=== PATIENT | female | born 1975 | race American Indian/Alaskan Native ===

== ENCOUNTER 2016-10-23 18:01 | Emergency (ER) | payer MEDICARE ==
[2016-10-23] MEDS ORDERED: FUL-GLO OP ONE (21:20)
[2016-10-23] MEDS ORDERED: TETRACAINE 0.5% OU ONE (21:21)
[2016-10-23] MEDS ORDERED: MOTRIN PO ONE (21:22)
--- NOTE | 2016-10-23 21:22 | Emergency Department Report ---
Eye Injury/Foreign Body - HPI Duration: Today Eye Location: Left Eye Symptoms: Eye Pain: Yes, Blurred Vision: Yes, Eye Redness: Yes, Grinding/ Hammering Metal: No, Used Eye Protection: No, Contact Lens Use: No, Recalls Injury: No, Photophobia: No Other History: 41-year-old female past medical history obesity, depression presents with complaint of left eye irritation and redness since this afternoon. Patient denies any direct trauma denies any substances splashing in her eye. States that she has had intermittent blurry vision since this afternoon. Overall vision is intact. Denies headache nausea but does state she has slight photophobia. Has had watery tears from left eye. ED Review of Systems ROS: Stated complaint: LEFT EYE IS RED, LEFT SIDE PAIN Other details as noted in HPI Constitutional: denies: chills, fever Eyes: eye pain, eye discharge, vision change (blurry vision left eye) ENT: denies: ear pain, throat pain Respiratory: denies: cough, shortness of breath, wheezing Cardiovascular: denies: chest pain, palpitations Endocrine: no symptoms reported Gastrointestinal: denies: abdominal pain, nausea, diarrhea Genitourinary: denies: urgency, dysuria, discharge Musculoskeletal: denies: back pain, joint swelling, arthralgia Skin: denies: rash, lesions Neurological: denies: headache, weakness, paresthesias Psychiatric: denies: anxiety, depression Hematological/Lymphatic: denies: easy bleeding, easy bruising ED Past Medical Hx - Past Medical History Hx Hypertension: Yes Hx Psychiatric Treatment: Yes (manic depression) - Surgical History Past Surgical History?: No - Social History Smoking Status: Never Smoker Substance Use Type: Alcohol - Medications Home Medications: Home Medications Medication Instructions Recorded Confirmed Last Taken Type Glycerin/Propylene Glycol 1 drop OP Q4H PRN #1 bottle 10/23/16 Unknown Rx [Artificial Tears Drops] Naproxen [Naprosyn TAB] 500 mg PO BID PRN #20 tablet 10/23/16 Unknown Rx Tobramycin 0.3% [Tobrex] 1 drop OS Q4H #1 bottle 10/23/16 Unknown Rx Eye Injury Exam - Exam General: Vital signs noted. No distress. Alert and acting appropriately. - Visual Acuity Left Vision Acuity Degree: 20/40 Eye Exam: Left Injection, Left EOMI, Left Fluorescein Uptake (small visible abrasion near pupil but normal overlyign it, vertical), Left Photophobia Exam: I performed IOP with tonopen, reading ,10, 11 left eye ED Course Vital Signs 10/23/16 18:22 Temperature 98.6 F Pulse Rate 106 H Respiratory 18 Rate Blood Pressure 149/97 O2 Sat by Pulse 99 Oximetry ED Medical Decision Making - Medical Decision Making A/P: Left eye corneal abrasion 1-tobramycin drops to left eye, naproxen when necessary 2-artificial tears 3-follow up with ophthalmology, I gave patient referral information and advised her to follow-up to mitigate any long-term issues with her vision 4- tdap updated today 5- IOP ,,11 left eye, visual acuity 20/30 right eye, 20/70 left eye, 20/50 BL. Critical care attestation.: If time is entered above; I have spent that time in minutes in the direct care of this critically ill patient, excluding procedure time. ED Disposition Clinical Impression: Corneal abrasion, left Qualifiers: Encounter type: initial encounter Qualified Code(s): S05.02XA - Injury of conjunctiva and corneal abrasion without foreign body, left eye, initial encounter Disposition: - TO HOME OR SELFCARE Is pt being admited?: No Does the pt Need Aspirin: No Condition: Stable Instructions: Corneal Abrasion (ED) Prescriptions: Glycerin/Propylene Glycol [Artificial Tears Drops] 1 drop OP Q4H PRN #1 bottle PRN Reason: Itching Naproxen [Naprosyn TAB] 500 mg PO BID PRN #20 tablet PRN Reason: Pain Tobramycin 0.3% [Tobrex] 1 drop OS Q4H #1 bottle Referrals: ELIDA ZAMORA MD [Staff Physician] - 3-5 Days RAS BENNETT MD [Staff Physician] - 3-5 Days Forms: Work/School Release Form(ED) Time of Disposition: 22:30
[2016-10-23] MEDS ORDERED: BOOSTRIX IM ONE (22:29)
[2016-10-23] MEDS ORDERED: NORCO 5/325 PO ONE (22:29)
[2016-10-23 23:11] VITALS: BP 138/89
== END 2016-10-23 23:10 | disposition home or self-care (01) ==
LOC: ED 18:01
DX: S05.02XA Injury of conjunctiva and corneal abrasion without foreign body, left eye, initial encounter (principal); I10 Essential (primary) hypertension; F32.9 Major depressive disorder, single episode, unspecified; E66.9 Obesity, unspecified; X58.XXXA Exposure to other specified factors, initial encounter; Y93.89 Activity, other specified; Y99.9 Unspecified external cause status; Y92.89 Other specified places as the place of occurrence of the external cause
CPT/HCPCS: 90471; 90715

== ENCOUNTER 2016-11-30 12:10 | Emergency (ER) | payer MEDICARE ==
[2016-11-30 12:19] VITALS: BP 184/103
[2016-11-30 12:54] LABS: Basophils % (Auto) 0.8 % (0.0-1.8); Eosinophils % (Auto) 2.2 % (0.0-4.3); Hematocrit 37.7 % (30.3-42.9); Hemoglobin 12.1 gm/dl (10.1-14.3); Mean Corpuscular HGB Conc 32 % (30-34); Mean Corpuscular Volume 79 fl (79-97); Platelet Count 172 K/mm3 (140-440); Red Cell Distribution Width 15.7 % (13.2-15.2); White Blood Count 8.6 K/mm3 (4.5-11.0)
[2016-11-30 13:11] LABS: Anion Gap 14 mmol/L; BUN/Creatinine Ratio 20; Blood Urea Nitrogen 14 mg/dL (7-17); Calcium 8.8 mg/dL (8.4-10.2); Carbon Dioxide 28 mmol/L (22-30); Chloride 102.2 mmol/L (98-107); Glucose 116 mg/dL (65-100); Potassium 4.5 mmol/L (3.6-5.0); Sodium 140 mmol/L (137-145)
[2016-11-30 13:18] LABS: Mean Corpuscular Hemoglobin 25 pg (28-32)
--- NOTE | 2016-11-30 15:35 | XRay Report ---
FINAL REPORT EXAM: XR CHEST ROUTINE 2V HISTORY: Shortness of breath TECHNIQUE: Two view chest PA and lateral PRIORS: None. FINDINGS: Cardiac and mediastinal contours are unremarkable. No focal pulmonary infiltrate is identified. No pleural fluid collection seen. Pulmonary vasculature is unremarkable. IMPRESSION: Negative two-view chest
[2016-11-30] MEDS ORDERED: FLEXERIL PO ONE (16:19)
[2016-11-30 16:40] LABS: Bacteria,Urine 1+ /HPF (Negative); Bilirubin,Urine NEG (Negative); Blood,Urine NEG (Negative); Ketones,Urine NEG (Negative); Leukocyte Esterase,Urine MOD (Negative); Mucus,Urine 3+ /HPF; Nitrite,Urine NEG (Negative); Protein,Urine <15 mg/dL mg/dL (Negative)
[2016-11-30] MEDS ORDERED: PROCARDIA XL PO ONE (17:00)
--- NOTE | 2016-11-30 17:07 | Emergency Department Report ---
HPI - General Chief Complaint: Headache Time Seen by Provider: 11/30/16 16:04 - HPI HPI: 41-year-old female with history of blood pressure but has been without medication a few months. Since the ED with headache, bilateral flank pain, no fever no neck pain. Patient denies any chest pain. ED Past Medical Hx - Past Medical History Hx Hypertension: Yes Hx Psychiatric Treatment: Yes (manic depression) - Surgical History Past Surgical History?: No - Social History Smoking Status: Never Smoker Substance Use Type: None - Medications Home Medications: Home Medications Medication Instructions Recorded Confirmed Last Taken Type Glycerin/Propylene Glycol 1 drop OP Q4H PRN #1 bottle 10/23/16 Unknown Rx [Artificial Tears Drops] Naproxen [Naprosyn TAB] 500 mg PO BID PRN #20 tablet 10/23/16 Unknown Rx Tobramycin 0.3% [Tobrex] 1 drop OS Q4H #1 bottle 10/23/16 Unknown Rx Ibuprofen [Motrin] 800 mg PO Q8HR PRN #30 tablet 11/30/16 Unknown Rx NIFEdipine XL [Procardia Xl] 30 mg PO QDAY #90 tablet 11/30/16 Unknown Rx ED Review of Systems ROS: Stated complaint: HEADACHE Other details as noted in HPI Comment: All other systems reviewed and negative Genitourinary: as per HPI Musculoskeletal: as per HPI Neurological: headache Physical Exam - Physical Exam Vital Signs: Vital Signs 11/30/16 12:16 Temperature 98 F Pulse Rate 78 Respiratory 22 Rate Blood Pressure 184/103 O2 Sat by Pulse 98 Oximetry Physical Exam: Physical Exam: Physical Exam: - General Limitations: No Limitations General appearance: alert, in no apparent distress. - Head Head exam: Present: atraumatic, normocephalic - Eye Eye exam: Present: normal appearance - ENT ENT exam: Present: mucous membranes moist - Neck Neck exam: Present: normal inspection - Respiratory Respiratory exam: Present: normal lung sounds bilaterally. Absent: respiratory distress - Cardiovascular Cardiovascular Exam: Present: normal rhythm, normal rate. Absent: systolic murmur, diastolic murmur, rubs, gallop - GI/Abdominal GI/Abdominal exam: Present: soft, normal bowel sounds - Extremities Exam Extremities exam: Present: normal inspection - Back Exam Back exam: Present: normal inspection - Neurological Exam Neurological exam: Present: alert, oriented X3 - Psychiatric Psychiatric exam: normal affect and mood - Skin Skin exam: Present: warm, dry, intact, normal color. Absent: rash ED Course Vital Signs 11/30/16 12:16 Temperature 98 F Pulse Rate 78 Respiratory 22 Rate Blood Pressure 184/103 O2 Sat by Pulse 98 Oximetry ED Medical Decision Making - Lab Data Result diagrams: 11/30/16 12:42 11/30/16 12:42 Critical care attestation.: If time is entered above; I have spent that time in minutes in the direct care of this critically ill patient, excluding procedure time. ED Disposition Clinical Impression: Labile hypertension Disposition: [id number] TO HOME OR SELFCARE Is pt being admited?: No Does the pt Need Aspirin: No Condition: Stable Instructions: Hypertension (ED) Prescriptions: Ibuprofen [Motrin] 800 mg PO Q8HR PRN #30 tablet PRN Reason: Headache NIFEdipine XL [Procardia Xl] 30 mg PO QDAY #90 tablet Referrals: PRIMARY CARE, [Primary Care Provider] - 3-5 Days
== END 2016-11-30 17:48 | disposition home or self-care (01) ==
LOC: ED 12:10
DX: I10 Essential (primary) hypertension (principal); R51 Headache
CPT/HCPCS: 36415; 71020; 80048; 81001; 81025; 84484; 85025; 99284